=== PATIENT | female | born 1960 | race Caucasian/White ===

== ENCOUNTER 2023-04-09 20:37 | Inpatient (IN) | payer SELFPAY ==
[2023-04-09] MEDS ORDERED: Piperacillin/Tazobactam 4.5 GM VIAL ONE (20:56)
[2023-04-09 21:15] LABS: #Monocytes 1.5 thou/uL (0.11-0.59); #Neutrophils 17.3 thou/uL (1.40-6.50); %Basophils 0.2 % (0.0-1.0); %Monocytes 7.3 % (0.0-10.0); %Neutrophils 85.6 % (42.0-75.0); Hematocrit 37.9 % (36.0-47.0); Hemoglobin 12.5 g/dL (12.0-16.0); Mean Corpuscular Hemoglobin 28.2 pg (27.0-31.0); Mean Corpuscular Volume 85.6 fl (78.0-98.0); Mean Platelet Volume 9.8 fL (7.4-10.4); Platelet Count 298 10x3/uL (130-400); RBC Distribution Width 13.5 % (11.5-14.5); Red Blood Cell (RBC) Count 4.43 mill/uL (4.20-5.40); White Blood Cell (WBC) Count 20.2 10x3/uL (4.8-10.8)
[2023-04-09] MEDS ORDERED: Vancomycin 1.5 GRAM/300 ML BAG 1.5 GM in Premix Bag 1 BAG IVPB SCH (21:15)
[2023-04-09 21:16] LABS: #Basophils 0.1 thou/uL (0.0-0.2)
[2023-04-09 21:25] LABS: Actual Bicarbonate (HCO3v) 21.5 mEq/L (22-28); Base Excess -1.2 mEq/L (-2.0 to +3.0); pH (venous) 7.467 (7.32-7.43)
[2023-04-09 21:26] LABS: Calcium, Ionized (venous) 1.09 mmol/L (1.16-1.32); Chloride (VBG) 100 mmol/L (98-106); Hematocrit-VBG 40 % (36.0-47.0); Hemoglobin (Hb) 13.6 g/dL (11.7-16.0); Sodium 133.5 mmol/L (133-146)
[2023-04-09 21:47] LABS: Troponin I Less than 0.010 ng/mL (< 0.028)
[2023-04-09 22:24] LABS: ALT (SGPT) 34 U/L (8-55); AST (SGOT) 27 U/L (5-34); Albumin 4.3 g/dL (3.4-4.8); Alkaline Phosphatase 129 U/L (40-110); Anion Gap 16 mmol/L (10-20); BUN (Urea Nitrogen) 13 mg/dL (9.8-20.1); Bilirubin, Total 1.5 mg/dL (0.2-1.2); Calc. Creatinine Clearance 0 mL/min (70-130); Calcium 9.6 mg/dL (7.8-10.44); Carbon Dioxide 20 mmol/L (23-31); Chloride 100 mmol/L (98-107); Estimated GFR 65; Globulin 4.1 g/dL (2.4-3.5); Glucose 134 mg/dL (80-115); Lipase 15 U/L (8-78); Magnesium 1.9 mg/dL (1.6-2.6); Potassium 3.6 mmol/L (3.5-5.1); Protein, Total 8.4 g/dL (5.8-8.1); Sodium 132 mmol/L (136-145)
[2023-04-09 23:47] LABS: Bacteria/HPF 4+ HPF (None Seen); Bilirubin Negative (Negative); Blood, Urine 2+ (Negative); CAUTI Indications for Culture Fever or rigors; Clarity Turbid (Clear); Glucose, Urine (Dipstick) Normal (Negative); Ketone, Urine Negative (Negative); Leukocyte 500 Leu/uL (Negative); Nitrite 1+ (Negative); Protein, Urine (Dipstick) 30 mg/dL (Neg-Trace); RBC/HPF 0-3 HPF (0-3); Specific Gravity, Urine 1.012 (1.002-1.036); Urobilinogen 3 mg/dL (Less than 2); WBC/HPF Greater than 50 HPF (0-3); pH, Urine 6.5 (5.0-9.0)
[2023-04-09 23:50] LABS: Urine Culture Reflex Yes Yes
[2023-04-10] MEDS ORDERED: Ondansetron PF 4 MG/2 ML Vial IVP PRN (02:31)
[2023-04-10] MEDS ORDERED: Morphine 4 MG/ML VIAL SLOW IVP PRN (03:09)
[2023-04-10 04:42] VITALS: BMI 44.6
[2023-04-10] MEDS ORDERED: Piperacillin/Tazobactam 3.375 GM VIAL ONE (05:53)
[2023-04-10] MEDS: Piperacillin/Tazobactam 3.375 GM in Sodium Chloride 0.9% 100 ML IVPB SCH ×3 (06:22→20:05)
[2023-04-10 06:42] LABS: #Basophils 0.1 thou/uL (0.0-0.2); #Monocytes 1.3 thou/uL (0.11-0.59); #Neutrophils 16.4 thou/uL (1.40-6.50); %Basophils 0.3 % (0.0-1.0); %Lymphocytes 6.3 % (21.0-51.0); %Monocytes 6.6 % (0.0-10.0); %Neutrophils 86.2 % (42.0-75.0); Hematocrit 36.6 % (36.0-47.0); Hemoglobin 11.9 g/dL (12.0-16.0); Mean Corpuscular HGB CONC 32.5 g/dL (32.0-36.0); Mean Corpuscular Volume 86.1 fl (78.0-98.0); Platelet Count 260 10x3/uL (130-400); RBC Distribution Width 13.6 % (11.5-14.5); Red Blood Cell (RBC) Count 4.25 mill/uL (4.20-5.40)
[2023-04-10 07:07] LABS: Anion Gap 15 mmol/L (10-20); BUN (Urea Nitrogen) 10 mg/dL (9.8-20.1); Calc. Creatinine Clearance 137 mL/min (70-130); Calcium 8.9 mg/dL (7.8-10.44); Carbon Dioxide 18 mmol/L (23-31); Chloride 107 mmol/L (98-107); Estimated GFR 78; Glucose 139 mg/dL (80-115); Potassium 3.8 mmol/L (3.5-5.1); Sodium 136 mmol/L (136-145)
[2023-04-10] MEDS ORDERED: Famotidine/PF 20 mg/2ml Vial ONE (07:55)
[2023-04-10] MEDS ORDERED: Iopamidol 15 ML ONE (08:12)
[2023-04-10] MEDS ORDERED: fentaNYL PF 100 MCG/2 ML SYRINGE ONE (08:22)
[2023-04-10] MEDS ORDERED: PHENYLEPHRINE-NS 100 MCG/ML 10 ML SYRINGE ONE (08:39)
[2023-04-10] MEDS ORDERED: Ondansetron PF 4 MG/2 ML Vial ONE (08:39)
[2023-04-10] MEDS ORDERED: PROPOFOL 200 MG/20 ML VIAL ONE (08:39)
[2023-04-10] MEDS ORDERED: Lidocaine 1% PF 5 ML VIAL ONE (08:39)
[2023-04-10] MEDS ORDERED: Dexamethasone 20 MG/5 ML VIAL ONE (08:39)
[2023-04-10] MEDS ORDERED: Mag-Al 1200 mg/1200 mg/30 ML UDCUP PO PRN (09:12)
[2023-04-10] MEDS ORDERED: diphenhydrAMINE 50 MG/ML VIAL IVP PRN (09:12)
[2023-04-10] MEDS ORDERED: HYDROcodone/Acetaminophen 5/325 mg Tablet PO PRN ×2 (09:12)
[2023-04-10] MEDS ORDERED: Ondansetron HCl/PF 4 MG/2 ML Vial IVP PRN (09:28)
[2023-04-10] MEDS ORDERED: Promethazine HCl 25 MG/ML VIAL IM PRN (09:28)
[2023-04-10] MEDS ORDERED: Iopamidol-370 76% 500 ML MDV (1 ML CHARGE) ONE (10:52)
[2023-04-10] MEDS: Sodium Chloride 0.9% 1,000 ML IV SCH ×2 (15:12→20:14)
[2023-04-10] MEDS: Acetaminophen 325 MG TAB PO PRN (20:53)
[2023-04-11] MEDS: Piperacillin/Tazobactam 3.375 GM in Sodium Chloride 0.9% 100 ML IVPB SCH ×2 (04:50→11:32)
[2023-04-11] MEDS: Sodium Chloride 0.9% 1,000 ML IV SCH ×2 (05:48→11:32)
[2023-04-11 06:59] LABS: #Monocytes 0.7 thou/uL (0.11-0.59); #Neutrophils 12.8 thou/uL (1.40-6.50); %Basophils 0.1 % (0.0-1.0); %Monocytes 4.7 % (0.0-10.0); %Neutrophils 86.5 % (42.0-75.0); Hematocrit 34.4 % (36.0-47.0); Hemoglobin 10.8 g/dL (12.0-16.0); Mean Corpuscular HGB CONC 31.4 g/dL (32.0-36.0); Mean Corpuscular Volume 89.1 fl (78.0-98.0); Mean Platelet Volume 10.6 fL (7.4-10.4); Platelet Count 251 10x3/uL (130-400); RBC Distribution Width 13.6 % (11.5-14.5); Red Blood Cell (RBC) Count 3.86 mill/uL (4.20-5.40); White Blood Cell (WBC) Count 14.8 10x3/uL (4.8-10.8)
[2023-04-11 07:23] LABS: Anion Gap 10 mmol/L (10-20); BUN (Urea Nitrogen) 15 mg/dL (9.8-20.1); Calc. Creatinine Clearance 155 mL/min (70-130); Calcium 9.1 mg/dL (7.8-10.44); Carbon Dioxide 22 mmol/L (23-31); Chloride 110 mmol/L (98-107); Estimated GFR 91; Glucose 125 mg/dL (80-115); Potassium 3.6 mmol/L (3.5-5.1); Sodium 138 mmol/L (136-145)
[2023-04-11] MEDS ORDERED: Polyethylene Glycol 3350 17 GM Packet PO PRN (13:59)
[2023-04-11] MEDS ORDERED: cefTRIAXone\\ROCEPHIN 1 GM in Sodium Chloride 0.9% 100 ML IVPB SCH (17:00)
[2023-04-11] MEDS ORDERED: Potassium Chloride 20 MEQ TAB PO SCH ×2 (17:00)
[2023-04-11] MEDS: Acetaminophen 325 MG TAB PO PRN (20:22)
[2023-04-11] MEDS: Docusate 100 MG CAP PO SCH (20:22)
[2023-04-11] MEDS: Oxybutynin 5 MG TAB PO PRN (20:23)
[2023-04-11] MEDS ORDERED: Multivit, Therapeutic 1 TAB PO SCH (21:00)
[2023-04-11] MEDS ORDERED: Senokot S 8.6-50 MG TAB PO SCH (21:00)
[2023-04-12] MEDS: Sodium Chloride 0.9% 1,000 ML IV SCH ×2 (00:37→05:27)
[2023-04-12] MEDS: Acetaminophen 325 MG TAB PO PRN (01:53)
[2023-04-12 06:42] LABS: #Monocytes 0.6 thou/uL (0.11-0.59); %Basophils 0.4 % (0.0-1.0); %Eosinophils 0.3 % (0.0-10.0); %Lymphocytes 25.5 % (21.0-51.0); %Monocytes 7.5 % (0.0-10.0); %Neutrophils 65.8 % (42.0-75.0); Hematocrit 32.3 % (36.0-47.0); Hemoglobin 10.3 g/dL (12.0-16.0); Mean Corpuscular HGB CONC 31.9 g/dL (32.0-36.0); Mean Corpuscular Hemoglobin 27.8 pg (27.0-31.0); Mean Corpuscular Volume 87.3 fl (78.0-98.0); Mean Platelet Volume 10.5 fL (7.4-10.4); Platelet Count 257 10x3/uL (130-400); RBC Distribution Width 13.8 % (11.5-14.5); White Blood Cell (WBC) Count 7.6 10x3/uL (4.8-10.8)
[2023-04-12 07:04] LABS: ALT (SGPT) 18 U/L (8-55); AST (SGOT) 8 U/L (5-34); Alkaline Phosphatase 87 U/L (40-110); Anion Gap 12 mmol/L (10-20); BUN (Urea Nitrogen) 15 mg/dL (9.8-20.1); Bilirubin, Total 0.2 mg/dL (0.2-1.2); Calc. Creatinine Clearance 162 mL/min (70-130); Calcium 8.6 mg/dL (7.8-10.44); Carbon Dioxide 21 mmol/L (23-31); Chloride 112 mmol/L (98-107); Estimated GFR 95; Globulin 2.8 g/dL (2.4-3.5); Glucose 87 mg/dL (80-115); Protein, Total 5.8 g/dL (5.8-8.1); Sodium 141 mmol/L (136-145)
[2023-04-12 07:34] VITALS: BP 113/73; TEMP 97.8
[2023-04-12] MEDS: Docusate 100 MG CAP PO SCH (09:08)
[2023-04-12] MEDS: Oxybutynin 5 MG TAB PO PRN (09:09)
== END 2023-04-12 12:33 | disposition home or self-care (01) | DRG 854 ==
LOC: ERS 20:37 → ERHOLD 04-10 02:11 → T4-A 04-10 02:47
PROVIDERS: ADMIT Internal Medicine; ATTEND Internal Medicine
PROC: 4A043R1 Measurement of Venous Saturation, Peripheral, Percutaneous Approach (ICD-10-PCS; 2023-04-09)
PROC: 3E03329 Introduction of Other Anti-infective into Peripheral Vein, Percutaneous Approach (ICD-10-PCS; 2023-04-09)
PROC: 0T778DZ Dilation of Left Ureter with Intraluminal Device, Via Natural or Artificial Opening Endoscopic (ICD-10-PCS; principal; 2023-04-10)
PROC: 0T9B70Z Drainage of Bladder with Drainage Device, Via Natural or Artificial Opening (ICD-10-PCS; 2023-04-10)
PROC: BT1F1ZZ Fluoroscopy of Left Kidney, Ureter and Bladder using Low Osmolar Contrast (ICD-10-PCS; 2023-04-10)
DX: A41.51 Sepsis due to Escherichia coli [E. coli] (principal); N13.6 Pyonephrosis; Z68.41 Body mass index [BMI] 40.0-44.9, adult; F32.A Depression, unspecified; E66.01 Morbid (severe) obesity due to excess calories; Z90.710 Acquired absence of both cervix and uterus; Z90.49 Acquired absence of other specified parts of digestive tract; Z83.3 Family history of diabetes mellitus; Z82.49 Family history of ischemic heart disease and other diseases of the circulatory system; Z87.891 Personal history of nicotine dependence; F41.9 Anxiety disorder, unspecified
CPT/HCPCS: 36415; 51701; 71045; 74178; 74420; 80048; 80053; 81001; 82805; 83605; 83690; 83735; 84484; 85025; 87040; 87077; 87086; 87186; 93005; 96365; 96366; 96367; C1769; C2617; J0696; J1100; J2405; J2543; J2704; J3370; J3490; J7050; Q9967; S0028

== ENCOUNTER 2023-06-12 15:37 | Inpatient (IN) | payer BC, OTHER ==
[~2023-06-12 15:37] MED LIST: Iopamidol-370 76% 500 ML MDV (1 ML CHARGE) ONE
[2023-06-12] MEDS ORDERED: Morphine 4 MG/ML VIAL ONE (17:29)
[2023-06-12] MEDS ORDERED: Ondansetron PF 4 MG/2 ML Vial ONE (17:29)
[2023-06-12 17:41] LABS: #Monocytes 0.7 thou/uL (0.11-0.59); #Neutrophils 12.2 thou/uL (1.40-6.50); %Basophils 0.3 % (0.0-1.0); %Eosinophils 0.2 % (0.0-10.0); %Lymphocytes 8.4 % (21.0-51.0); %Monocytes 4.8 % (0.0-10.0); %Neutrophils 85.7 % (42.0-75.0); Hematocrit 32.9 % (36.0-47.0); Hemoglobin 10.5 g/dL (12.0-16.0); Mean Corpuscular HGB CONC 31.9 g/dL (32.0-36.0); Mean Corpuscular Hemoglobin 28.2 pg (27.0-31.0); Mean Corpuscular Volume 88.2 fl (78.0-98.0); Mean Platelet Volume 9.8 fL (7.4-10.4); Platelet Count 323 10x3/uL (130-400); RBC Distribution Width 17.4 % (11.5-14.5); Red Blood Cell (RBC) Count 3.73 mill/uL (4.20-5.40); White Blood Cell (WBC) Count 14.2 10x3/uL (4.8-10.8)
[2023-06-12 18:10] LABS: ALT (SGPT) 11 U/L (8-55); AST (SGOT) 14 U/L (5-34); Albumin 4.5 g/dL (3.4-4.8); Alkaline Phosphatase 125 U/L (40-110); Anion Gap 11 mmol/L (10-20); BUN (Urea Nitrogen) 21 mg/dL (9.8-20.1); Bilirubin, Total 0.5 mg/dL (0.2-1.2); Calc. Creatinine Clearance 0 mL/min (70-130); Calcium 9.3 mg/dL (7.8-10.44); Carbon Dioxide 28 mmol/L (23-31); Chloride 103 mmol/L (98-107); Estimated GFR 72; Globulin 3.4 g/dL (2.4-3.5); Glucose 107 mg/dL (80-115); Potassium 3.9 mmol/L (3.5-5.1); Protein, Total 7.9 g/dL (5.8-8.1); Sodium 138 mmol/L (136-145)
[2023-06-12 20:11] LABS: Troponin I Less than 0.010 ng/mL (< 0.028)
[2023-06-12 20:20] LABS: Bacteria/HPF 4+ HPF (None Seen); Bilirubin Negative (Negative); Blood, Urine Trace (Negative); CAUTI Indications for Culture Dysuria,urgency,freq; Clarity Turbid (Clear); Glucose, Urine (Dipstick) Normal (Negative); Ketone, Urine Negative (Negative); Leukocyte 500 Leu/uL (Negative); Nitrite 2+ (Negative); Protein, Urine (Dipstick) 20 mg/dL (Neg-Trace); Specific Gravity, Urine 1.036 (1.002-1.036); Squamous Epithelial 0-3 HPF (0-3); Urobilinogen Normal mg/dL (Less than 2); WBC/HPF Greater than 50 HPF (0-3); pH, Urine 6.5 (5.0-9.0)
[2023-06-12 20:23] LABS: Urine Culture Reflex Yes Yes
[2023-06-12] MEDS ORDERED: cefTRIAXone (ROCEPHIN) 2 GM VIAL ONE (20:31)
[2023-06-12] MEDS ORDERED: Sodium Chloride 0.9% 100 ML ONE (20:31)
[2023-06-12] MEDS ORDERED: Meropenem 1 GM in Sodium Chloride 0.9% 100 ML IVPB SCH (22:45)
[2023-06-12 23:50] LABS: INR-International Normal Ratio 1.1; Prothrombin Time 14.2 sec (12.0-14.7)
[2023-06-12 23:52] LABS: PTT 23.2 sec (22.9-36.1)
[2023-06-13] MEDS ORDERED: Morphine 4 MG/ML VIAL SLOW IVP PRN (00:22)
[2023-06-13] MEDS ORDERED: Ondansetron ODT 4 MG TAB PO PRN (01:14)
[2023-06-13] MEDS ORDERED: Ondansetron PF 4 MG/2 ML Vial IVP PRN (01:14)
[2023-06-13] MEDS ORDERED: Acetaminophen 650 MG Suppository PR PRN (01:14)
[2023-06-13 02:01] VITALS: BMI 42.5
[2023-06-13] MEDS: Sodium Chloride 0.9% 1,000 ML IV SCH ×2 (02:39→17:01)
[2023-06-13] MEDS ORDERED: Morphine 4 MG/ML VIAL ONE (02:42)
[2023-06-13] MEDS ORDERED: Ondansetron PF 4 MG/2 ML Vial ONE (03:22)
[2023-06-13 04:59] LABS: #Basophils 0.1 thou/uL (0.0-0.2); #Monocytes 0.9 thou/uL (0.11-0.59); #Neutrophils 13.6 thou/uL (1.40-6.50); %Basophils 0.3 % (0.0-1.0); %Lymphocytes 5.4 % (21.0-51.0); %Monocytes 5.6 % (0.0-10.0); %Neutrophils 88.1 % (42.0-75.0); Hematocrit 31.5 % (36.0-47.0); Hemoglobin 9.8 g/dL (12.0-16.0); Mean Corpuscular HGB CONC 31.1 g/dL (32.0-36.0); Mean Corpuscular Hemoglobin 27.5 pg (27.0-31.0); Mean Corpuscular Volume 88.5 fl (78.0-98.0); Mean Platelet Volume 9.7 fL (7.4-10.4); Platelet Count 288 10x3/uL (130-400); RBC Distribution Width 17.8 % (11.5-14.5); Red Blood Cell (RBC) Count 3.56 mill/uL (4.20-5.40); White Blood Cell (WBC) Count 15.5 10x3/uL (4.8-10.8)
[2023-06-13 05:22] LABS: Anion Gap 13 mmol/L (10-20); BUN (Urea Nitrogen) 13 mg/dL (9.8-20.1); Calc. Creatinine Clearance 131 mL/min (70-130); Calcium 8.5 mg/dL (7.8-10.44); Carbon Dioxide 22 mmol/L (23-31); Chloride 106 mmol/L (98-107); Estimated GFR 79; Glucose 125 mg/dL (80-115); Potassium 4.1 mmol/L (3.5-5.1); Sodium 137 mmol/L (136-145)
[2023-06-13] MEDS ORDERED: Piperacillin/Tazobactam 3.375 GM VIAL ONE ×2 (06:57→13:21)
[2023-06-13] MEDS ORDERED: Sodium Chloride 0.9% 100 ML ONE ×2 (06:58→13:21)
[2023-06-13] MEDS ORDERED: Piperacillin/Tazobactam 3.375 GM in Sodium Chloride 0.9% 100 ML IVPB SCH (07:00)
[2023-06-13] MEDS ORDERED: ALPRAZolam 0.25 MG TAB PO SCH (09:00)
[2023-06-13] MEDS ORDERED: ALPRAZolam 0.25 MG TAB ONE (09:47)
[2023-06-13] MEDS ORDERED: Sodium Bicarbonate 2.5 MEQ/5 ML VIAL ONE (09:57)
[2023-06-13] MEDS ORDERED: Midazolam HCl 2 mg/2 ml Vial ONE (09:58)
[2023-06-13] MEDS ORDERED: fentaNYL 50 mcg/mL 1 mL Vial ONE ×2 (09:58→11:38)
[2023-06-13] MEDS ORDERED: Lidocaine 1% PF 5 ML VIAL ONE (09:58)
[2023-06-13] MEDS ORDERED: Lidocaine 1% w/Epinephrine 1:100K 20 ML VIAL ONE (10:09)
[2023-06-13] MEDS: Piperacillin/Tazobactam 3.375 GM in Sodium Chloride 0.9% 100 ML IVPB SCH ×2 (13:36→20:45)
[2023-06-13] MEDS: Acetaminophen 325 MG TAB PO PRN ×2 (16:57→20:46)
[2023-06-13] MEDS: traMADol HCl 50 MG TAB PO PRN (21:19)
[2023-06-14] MEDS: Sodium Chloride 0.9% 1,000 ML IV SCH ×2 (02:40→13:10)
[2023-06-14] MEDS: traMADol HCl 50 MG TAB PO PRN (03:17)
[2023-06-14] MEDS: Piperacillin/Tazobactam 3.375 GM in Sodium Chloride 0.9% 100 ML IVPB SCH ×3 (03:17→20:09)
[2023-06-14] MEDS ORDERED: fentaNYL 50 mcg/mL 1 mL Vial ONE (06:46)
[2023-06-14] MEDS ORDERED: PROPOFOL 40 ML ONE (06:46)
[2023-06-14] MEDS ORDERED: Dexamethasone 4 mg/ml Vial ONE (06:48)
[2023-06-14] MEDS ORDERED: Lidocaine 1% PF 5 ML VIAL ONE (06:48)
[2023-06-14] MEDS ORDERED: Ondansetron PF 4 MG/2 ML Vial ONE ×2 (06:48→07:20)
[2023-06-14] MEDS ORDERED: Iopamidol 15 ML ONE (06:50)
[2023-06-14] MEDS ORDERED: SUGAMMADEX SODIUM 200 MG/2 ML VIAL ONE (07:10)
[2023-06-14] MEDS ORDERED: Rocuronium Bromide 10 MG/ML (10ML VIAL) ONE (07:20)
[2023-06-14] MEDS ORDERED: PROPOFOL 200 MG/20 ML VIAL ONE (07:20)
[2023-06-14] MEDS ORDERED: PHENYLEPHRINE-NS 100 MCG/ML 10 ML SYRINGE ONE (07:20)
[2023-06-14] MEDS ORDERED: Dexamethasone 20 MG/5 ML VIAL ONE (07:20)
[2023-06-14] MEDS ORDERED: Ondansetron HCl/PF 4 MG/2 ML Vial IVP PRN (08:08)
[2023-06-14] MEDS ORDERED: Promethazine HCl 25 MG/ML VIAL IM PRN (08:08)
[2023-06-14] MEDS ORDERED: Oxybutynin 5 MG TAB PO PRN (09:50)
[2023-06-14] MEDS: Sertraline 100 MG TAB PO SCH (10:57)
[2023-06-14] MEDS: Multivit, Therapeutic 1 TAB PO SCH (20:09)
[2023-06-15] MEDS: Sodium Chloride 0.9% 1,000 ML IV SCH ×3 (03:05→22:53)
[2023-06-15] MEDS: Piperacillin/Tazobactam 3.375 GM in Sodium Chloride 0.9% 100 ML IVPB SCH ×3 (03:46→20:44)
[2023-06-15 06:01] LABS: #Monocytes 0.4 thou/uL (0.11-0.59); #Neutrophils 6.2 thou/uL (1.40-6.50); %Basophils 0.3 % (0.0-1.0); %Eosinophils 0.1 % (0.0-10.0); %Lymphocytes 16.2 % (21.0-51.0); %Monocytes 4.8 % (0.0-10.0); Hematocrit 30.4 % (36.0-47.0); Hemoglobin 9.5 g/dL (12.0-16.0); Mean Corpuscular HGB CONC 31.3 g/dL (32.0-36.0); Mean Corpuscular Hemoglobin 28.1 pg (27.0-31.0); Mean Corpuscular Volume 89.9 fl (78.0-98.0); Mean Platelet Volume 9.9 fL (7.4-10.4); Platelet Count 286 10x3/uL (130-400); RBC Distribution Width 17.2 % (11.5-14.5); Red Blood Cell (RBC) Count 3.38 mill/uL (4.20-5.40); White Blood Cell (WBC) Count 7.9 10x3/uL (4.8-10.8)
[2023-06-15 06:29] LABS: Anion Gap 11 mmol/L (10-20); BUN (Urea Nitrogen) 9 mg/dL (9.8-20.1); Calc. Creatinine Clearance 138 mL/min (70-130); Calcium 8.9 mg/dL (7.8-10.44); Carbon Dioxide 26 mmol/L (23-31); Chloride 108 mmol/L (98-107); Estimated GFR 83; Glucose 106 mg/dL (80-115); Potassium 3.6 mmol/L (3.5-5.1); Sodium 141 mmol/L (136-145)
[2023-06-15] MEDS: Multivit, Therapeutic 1 TAB PO SCH ×2 (09:00→20:45)
[2023-06-15] MEDS: Sertraline 100 MG TAB PO SCH (09:00)
[2023-06-15] MEDS: HYDROcodone/Acetaminophen 5/325 mg Tablet PO PRN (11:17)
[2023-06-15] MEDS: traMADol HCl 50 MG TAB PO PRN (20:45)
[2023-06-16] MEDS: traMADol HCl 50 MG TAB PO PRN ×3 (01:32→16:58)
[2023-06-16] MEDS: Piperacillin/Tazobactam 3.375 GM in Sodium Chloride 0.9% 100 ML IVPB SCH ×3 (03:22→20:51)
[2023-06-16 06:39] LABS: #Basophils 0.1 thou/uL (0.0-0.2); #Eosinphils 0.1 thou/uL (0.0-0.7); #Monocytes 0.4 thou/uL (0.11-0.59); #Neutrophils 3.7 thou/uL (1.40-6.50); %Basophils 0.8 % (0.0-1.0); %Lymphocytes 29.1 % (21.0-51.0); %Monocytes 6.2 % (0.0-10.0); %Neutrophils 61.6 % (42.0-75.0); Hematocrit 30.5 % (36.0-47.0); Hemoglobin 9.3 g/dL (12.0-16.0); Mean Corpuscular HGB CONC 30.5 g/dL (32.0-36.0); Mean Corpuscular Hemoglobin 27.1 pg (27.0-31.0); Mean Corpuscular Volume 88.9 fl (78.0-98.0); Mean Platelet Volume 9.8 fL (7.4-10.4); Platelet Count 295 10x3/uL (130-400); RBC Distribution Width 17.2 % (11.5-14.5); Red Blood Cell (RBC) Count 3.43 mill/uL (4.20-5.40)
[2023-06-16 07:04] LABS: Anion Gap 11 mmol/L (10-20); BUN (Urea Nitrogen) 12 mg/dL (9.8-20.1); Calc. Creatinine Clearance 153 mL/min (70-130); Calcium 8.6 mg/dL (7.8-10.44); Carbon Dioxide 26 mmol/L (23-31); Chloride 107 mmol/L (98-107); Estimated GFR 94; Glucose 81 mg/dL (80-115); Potassium 3.5 mmol/L (3.5-5.1); Sodium 140 mmol/L (136-145)
[2023-06-16] MEDS ORDERED: FLU VACC QS2023-24(6MOS UP)/PF 60 MCG/0.5 ML SYRINGE IM ONE (09:00)
[2023-06-16] MEDS: Sodium Chloride 0.9% 1,000 ML IV SCH ×2 (09:08→19:05)
[2023-06-16] MEDS: Multivit, Therapeutic 1 TAB PO SCH ×2 (09:08→20:51)
[2023-06-16] MEDS: Sertraline 100 MG TAB PO SCH (09:08)
[2023-06-17] MEDS: Sodium Chloride 0.9% 1,000 ML IV SCH ×2 (01:23→15:02)
[2023-06-17] MEDS: Piperacillin/Tazobactam 3.375 GM in Sodium Chloride 0.9% 100 ML IVPB SCH ×3 (03:56→21:06)
[2023-06-17] MEDS: Multivit, Therapeutic 1 TAB PO SCH ×2 (08:56→21:08)
[2023-06-17] MEDS: Sertraline 100 MG TAB PO SCH (08:56)
[2023-06-17] MEDS ORDERED: Iopamidol-370 76% 500 ML MDV (1 ML CHARGE) ONE (10:42)
[2023-06-17 15:30] LABS: Bacteria/HPF None Seen HPF (None Seen); Bilirubin Negative (Negative); Blood, Urine 1+ (Negative); Clarity Clear (Clear); Glucose, Urine (Dipstick) Normal (Negative); Ketone, Urine Negative (Negative); Leukocyte 250 Leu/uL (Negative); Nitrite Negative (Negative); Protein, Urine (Dipstick) Negative (Neg-Trace); Specific Gravity, Urine 1.021 (1.002-1.036); Squamous Epithelial 0-3 HPF (0-3); Urobilinogen Normal mg/dL (Less than 2); pH, Urine 6.5 (5.0-9.0)
[2023-06-18] MEDS: Piperacillin/Tazobactam 3.375 GM in Sodium Chloride 0.9% 100 ML IVPB SCH ×3 (04:54→20:41)
[2023-06-18] MEDS: Sodium Chloride 0.9% 1,000 ML IV SCH ×3 (04:56→20:42)
[2023-06-18] MEDS: Sertraline 100 MG TAB PO SCH (08:16)
[2023-06-18] MEDS: Multivit, Therapeutic 1 TAB PO SCH ×2 (08:16→20:42)
[2023-06-18] MEDS: traMADol HCl 50 MG TAB PO PRN (12:49)
[2023-06-19] MEDS: Acetaminophen 325 MG TAB PO PRN (00:17)
[2023-06-19] MEDS: Piperacillin/Tazobactam 3.375 GM in Sodium Chloride 0.9% 100 ML IVPB SCH ×3 (04:42→21:16)
[2023-06-19] MEDS: Sertraline 100 MG TAB PO SCH (08:08)
[2023-06-19] MEDS: Sodium Chloride 0.9% 1,000 ML IV SCH ×2 (08:08→16:19)
[2023-06-19] MEDS: Multivit, Therapeutic 1 TAB PO SCH ×2 (08:09→21:18)
[2023-06-19] MEDS: HYDROcodone/Acetaminophen 5/325 mg Tablet PO PRN (11:39)
[2023-06-19] MEDS: traMADol HCl 50 MG TAB PO PRN ×2 (14:58→21:16)
[2023-06-20] MEDS: HYDROcodone/Acetaminophen 5/325 mg Tablet PO PRN (04:03)
[2023-06-20] MEDS: Piperacillin/Tazobactam 3.375 GM in Sodium Chloride 0.9% 100 ML IVPB SCH ×3 (04:03→20:15)
[2023-06-20] MEDS: Sodium Chloride 0.9% 1,000 ML IV SCH ×3 (04:04→21:10)
[2023-06-20] MEDS: Sertraline 100 MG TAB PO SCH (08:36)
[2023-06-20] MEDS: Multivit, Therapeutic 1 TAB PO SCH ×2 (08:36→20:15)
[2023-06-20] MEDS: traMADol HCl 50 MG TAB PO PRN (20:19)
[2023-06-21] MEDS: Piperacillin/Tazobactam 3.375 GM in Sodium Chloride 0.9% 100 ML IVPB SCH ×3 (04:54→20:09)
[2023-06-21] MEDS: Sertraline 100 MG TAB PO SCH (08:38)
[2023-06-21] MEDS: Sodium Chloride 0.9% 1,000 ML IV SCH ×2 (08:38→20:10)
[2023-06-21] MEDS: Multivit, Therapeutic 1 TAB PO SCH ×2 (08:38→20:10)
[2023-06-21] MEDS: traMADol HCl 50 MG TAB PO PRN (20:59)
[2023-06-21] MEDS: Acetaminophen 325 MG TAB PO PRN (21:00)
[2023-06-22] MEDS: Piperacillin/Tazobactam 3.375 GM in Sodium Chloride 0.9% 100 ML IVPB SCH ×3 (04:00→20:16)
[2023-06-22] MEDS: Sodium Chloride 0.9% 1,000 ML IV SCH (05:32)
[2023-06-22] MEDS: Multivit, Therapeutic 1 TAB PO SCH ×2 (08:16→20:17)
[2023-06-22] MEDS: Sertraline 100 MG TAB PO SCH (08:16)
[2023-06-22] MEDS: Acetaminophen 325 MG TAB PO PRN ×2 (11:11→20:17)
[2023-06-23] MEDS: Piperacillin/Tazobactam 3.375 GM in Sodium Chloride 0.9% 100 ML IVPB SCH ×3 (03:42→20:10)
[2023-06-23] MEDS ORDERED: diphenhydrAMINE 25 MG CAP PO SCH (04:15)
[2023-06-23] MEDS: Acetaminophen 325 MG TAB PO PRN (04:26)
[2023-06-23] MEDS: traMADol HCl 50 MG TAB PO PRN (06:04)
[2023-06-23] MEDS: Multivit, Therapeutic 1 TAB PO SCH ×2 (07:59→20:11)
[2023-06-23] MEDS: Sertraline 100 MG TAB PO SCH (07:59)
[2023-06-23] MEDS: Nystatin Powder 15 GM BOT TOP SCH (20:11)
[2023-06-23] MEDS: diphenhydrAMINE 25 MG CAP PO PRN (20:11)
[2023-06-24] MEDS: Piperacillin/Tazobactam 3.375 GM in Sodium Chloride 0.9% 100 ML IVPB SCH ×3 (04:21→19:50)
[2023-06-24] MEDS: diphenhydrAMINE 25 MG CAP PO PRN ×3 (04:22→19:50)
[2023-06-24 06:31] LABS: #Basophils 0.1 thou/uL (0.0-0.2); #Eosinphils 0.2 thou/uL (0.0-0.7); #Monocytes 0.5 thou/uL (0.11-0.59); #Neutrophils 4.4 thou/uL (1.40-6.50); %Basophils 1.3 % (0.0-1.0); %Eosinophils 3.3 % (0.0-10.0); %Lymphocytes 25.3 % (21.0-51.0); %Neutrophils 62.8 % (42.0-75.0); Hematocrit 37.3 % (36.0-47.0); Hemoglobin 11.9 g/dL (12.0-16.0); Mean Corpuscular HGB CONC 31.9 g/dL (32.0-36.0); Mean Corpuscular Hemoglobin 27.7 pg (27.0-31.0); Mean Corpuscular Volume 86.7 fl (78.0-98.0); Platelet Count 331 10x3/uL (130-400); RBC Distribution Width 17.2 % (11.5-14.5)
[2023-06-24 06:59] LABS: ALT (SGPT) 18 U/L (8-55); AST (SGOT) 20 U/L (5-34); Alkaline Phosphatase 101 U/L (40-110); Anion Gap 15 mmol/L (10-20); BUN (Urea Nitrogen) 16 mg/dL (9.8-20.1); Bilirubin, Total 0.7 mg/dL (0.2-1.2); CRP (Inflammatory) 2.79 mg/dL (= or < 0.5); Calc. Creatinine Clearance 134 mL/min (70-130); Calcium 9.7 mg/dL (7.8-10.44); Carbon Dioxide 24 mmol/L (23-31); Chloride 103 mmol/L (98-107); Estimated GFR 81; Globulin 4.1 g/dL (2.4-3.5); Glucose 96 mg/dL (80-115); Potassium 3.8 mmol/L (3.5-5.1); Protein, Total 8.1 g/dL (5.8-8.1); Sodium 138 mmol/L (136-145)
[2023-06-24] MEDS: Sertraline 100 MG TAB PO SCH (08:08)
[2023-06-24] MEDS: Multivit, Therapeutic 1 TAB PO SCH ×2 (08:08→19:50)
[2023-06-24] MEDS: Nystatin Powder 15 GM BOT TOP SCH ×2 (08:09→19:51)
[2023-06-25] MEDS: Piperacillin/Tazobactam 3.375 GM in Sodium Chloride 0.9% 100 ML IVPB SCH ×3 (04:15→18:06)
[2023-06-25] MEDS: Sertraline 100 MG TAB PO SCH (08:00)
[2023-06-25] MEDS: Multivit, Therapeutic 1 TAB PO SCH ×2 (08:01→21:02)
[2023-06-25] MEDS: diphenhydrAMINE 25 MG CAP PO PRN (08:01)
[2023-06-25] MEDS: Nystatin Powder 15 GM BOT TOP SCH ×2 (08:01→21:02)
[2023-06-25] MEDS: traMADol HCl 50 MG TAB PO PRN ×2 (12:03→23:08)
[2023-06-26 01:19] VITALS: BP 134/78; TEMP 97.9
== END 2023-06-26 01:03 | disposition home or self-care (01) | DRG 853 ==
LOC: ERS 15:37 → ERHOLD 23:52 → T4-B 06-13 16:36
PROVIDERS: ADMIT Student in an Organized Health Care Education/Training Program; ATTEND Internal Medicine
PROC: 3E04329 Introduction of Other Anti-infective into Central Vein, Percutaneous Approach (ICD-10-PCS; 2023-06-13)
PROC: BT1F1ZZ Fluoroscopy of Left Kidney, Ureter and Bladder using Low Osmolar Contrast (ICD-10-PCS; principal; 2023-06-14)
PROC: 0T778DZ Dilation of Left Ureter with Intraluminal Device, Via Natural or Artificial Opening Endoscopic (ICD-10-PCS; 2023-06-14)
PROC: 02HV33Z Insertion of Infusion Device into Superior Vena Cava, Percutaneous Approach (ICD-10-PCS; 2023-06-18)
PROC: B5181ZA Fluoroscopy of Superior Vena Cava using Low Osmolar Contrast, Guidance (ICD-10-PCS; 2023-06-18)
PROC: B548ZZA Ultrasonography of Superior Vena Cava, Guidance (ICD-10-PCS; 2023-06-18)
DX: A41.52 Sepsis due to Pseudomonas (principal); N15.1 Renal and perinephric abscess; Z68.41 Body mass index [BMI] 40.0-44.9, adult; N13.6 Pyonephrosis; Z90.710 Acquired absence of both cervix and uterus; Z90.49 Acquired absence of other specified parts of digestive tract; Z79.899 Other long term (current) drug therapy; D64.9 Anemia, unspecified; E66.01 Morbid (severe) obesity due to excess calories; Z98.890 Other specified postprocedural states; Z83.3 Family history of diabetes mellitus; Z87.891 Personal history of nicotine dependence; F32.A Depression, unspecified
CPT/HCPCS: 36415; 36569; 50020; 71045; 74178; 74420; 77012; 80048; 80053; 81001; 83605; 83690; 83880; 84443; 84484; 85025; 85610; 85730; 86140; 87040; 87070; 87076; 87077; 87086; 87149; 87186; 87205; 93005; 96365; 96367; 96375; C2617; J0696; J1100; J2185; J2250; J2270; J2405; J2543; J2704; J3010; J3490; J7050; Q9967

== ENCOUNTER 2023-06-28 10:07 | Outpatient (CLI) | payer BC, OTHER ==
[2023-06-28 11:29] LABS: Hematocrit 35.9 % (34.9-44.5); Hemoglobin 11.4 g/dL (12.0-15.5); Mean Corpuscular HGB CONC 31.8 g/dL (32.0-36.0); Mean Corpuscular Hemoglobin 27.3 pg (27.0-33.0); Mean Corpuscular Volume 86.1 fl (81.6-98.3); Mean Platelet Volume 10.3 fl (7.4-10.4); Platelet Count 341 10x3/uL (150-450); RBC Distribution Width 16.8 % (11.5-14.5); Red Blood Cell (RBC) Count 4.17 10x6/uL (3.90-5.03); White Blood Cell (WBC) Count 6.3 10x3/uL (3.5-10.5)
[2023-06-28 11:39] LABS: PTT 25.6 sec (22.0-33.0); Prothrombin Time 10.9 sec (9.5-12.1)
[2023-06-28 11:41] LABS: Anion Gap 15 mmol/L (10-20); BUN (Urea Nitrogen) 11 mg/dL (9.8-20.1); Calc. Creatinine Clearance 0 mL/min (70-130); Calcium 9.8 mg/dL (7.8-10.44); Carbon Dioxide 22 mmol/L (23-31); Chloride 106 mmol/L (98-107); Estimated GFR 94; Glucose 106 mg/dL (80-115); Potassium 3.6 mmol/L (3.5-5.1); Sodium 139 mmol/L (136-145)
== END 2023-06-28 10:08 | disposition home or self-care (01) ==
LOC: LABBT 10:07
PROVIDERS: ATTEND Urology
DX: Z01.818 Encounter for other preprocedural examination (principal); N20.0 Calculus of kidney
CPT/HCPCS: 80048; 85027; 85610; 85730; 93005; 93010

== ENCOUNTER 2023-07-01 06:08 | Day surgery (SDC) | payer BC ==
[2023-06-28 10:35] VITALS: BMI 41.6
[2023-07-01] MEDS ORDERED: Vancomycin 1 GM/200 ML (FROZEN) BAG ONE (06:51)
[2023-07-01] MEDS ORDERED: PROPOFOL 40 ML ONE (06:58)
[2023-07-01] MEDS ORDERED: Rocuronium Bromide 10 MG/ML (10ML VIAL) ONE (06:58)
[2023-07-01] MEDS ORDERED: SUGAMMADEX SODIUM 200 MG/2 ML VIAL ONE (06:58)
[2023-07-01] MEDS ORDERED: fentaNYL PF 100 MCG/2 ML SYRINGE ONE (06:58)
[2023-07-01] MEDS ORDERED: Dexamethasone 4 mg/ml Vial ONE (06:58)
[2023-07-01] MEDS ORDERED: Lidocaine 1% PF 5 ML VIAL ONE (06:58)
[2023-07-01] MEDS ORDERED: Ondansetron PF 4 MG/2 ML Vial ONE ×3 (06:58→10:07)
[2023-07-01] MEDS ORDERED: PHENYLEPHRINE-NS 100 MCG/ML 10 ML SYRINGE ONE (07:00)
[2023-07-01] MEDS ORDERED: Iopamidol 30 ML ONE (07:22)
[2023-07-01] MEDS ORDERED: Piperacillin/Tazobactam 3.375 GM VIAL ONE (07:26)
[2023-07-01] MEDS ORDERED: Sodium Chloride 0.9% 100 ML ONE (07:27)
[2023-07-01] MEDS ORDERED: Phenazopyridine HCl 100 MG TAB ONE (09:22)
[2023-07-01] MEDS ORDERED: Oxybutynin 5 MG TAB ONE (09:22)
[2023-07-01] MEDS ORDERED: Acetaminophen 500 MG TAB ONE (10:56)
== END 2023-07-01 11:15 | disposition home or self-care (01) ==
LOC: SDC 06:08
PROVIDERS: ATTEND Urology
PROC: 0T778DZ Dilation of Left Ureter with Intraluminal Device, Via Natural or Artificial Opening Endoscopic (ICD-10-PCS; principal; 2023-07-01)
PROC: 0TC78ZZ Extirpation of Matter from Left Ureter, Via Natural or Artificial Opening Endoscopic (ICD-10-PCS; principal; 2023-07-01)
DX: N20.2 Calculus of kidney with calculus of ureter (principal); Z90.710 Acquired absence of both cervix and uterus; Z90.49 Acquired absence of other specified parts of digestive tract
CPT/HCPCS: 74018; 74420; 82365; 88300; C1747; C1769; C2617; J1100; J2405; J2543; J2704; J3370-JW; J3490; Q9967

== ENCOUNTER → 2023-07-03 | Day surgery (SDC) | payer BC, OTHER | LOC: ONC/OP 13:47 | PROVIDERS: ATTEND Internal Medicine | DX: N15.1 Renal and perinephric abscess (principal); A41.52 Sepsis due to Pseudomonas | CPT/HCPCS: 96523; 99211; G0463 ==

== ENCOUNTER 2023-07-10 09:55 | Outpatient (CLI) | payer BC | END 2023-07-10 09:56 | disposition home or self-care (01) | LOC: BICCT 09:55 | PROVIDERS: ATTEND Urology | DX: N15.1 Renal and perinephric abscess (principal); N20.2 Calculus of kidney with calculus of ureter; N32.89 Other specified disorders of bladder; Z98.890 Other specified postprocedural states | CPT/HCPCS: 74178 ==

== ENCOUNTER 2023-07-11 10:08 | Day surgery (SDC) | payer BC, OTHER | END 2023-07-11 10:20 | disposition home or self-care (01) | LOC: ONC/OP 10:08 | PROVIDERS: ATTEND Urology | DX: Z45.2 Encounter for adjustment and management of vascular access device (principal); N20.2 Calculus of kidney with calculus of ureter; A41.52 Sepsis due to Pseudomonas; N15.1 Renal and perinephric abscess; Z98.890 Other specified postprocedural states; F41.9 Anxiety disorder, unspecified | CPT/HCPCS: 99211; G0463 ==

== ENCOUNTER 2023-10-09 10:44 | Outpatient (CLI) | payer BC | END 2023-10-09 10:45 | disposition home or self-care (01) | LOC: BICULT 10:44 | PROVIDERS: ATTEND Urology | DX: N15.1 Renal and perinephric abscess (principal); N20.0 Calculus of kidney; M51.86 Other intervertebral disc disorders, lumbar region; Z98.890 Other specified postprocedural states | CPT/HCPCS: 74018; 76770 ==

== ENCOUNTER 2024-01-13 08:51 | Outpatient (CLI) | payer BC | END 2024-01-13 08:52 | disposition home or self-care (01) | LOC: NM 08:51 | PROVIDERS: ATTEND Specialist | DX: E21.3 Hyperparathyroidism, unspecified (principal) | CPT/HCPCS: 78072; A9500 ==

== ENCOUNTER 2024-03-27 12:28 | Outpatient (CLI) | payer BC | END 2024-03-27 12:29 | disposition home or self-care (01) | LOC: BICULT 12:28 | PROVIDERS: ATTEND Urology | DX: N20.0 Calculus of kidney (principal); R79.89 Other specified abnormal findings of blood chemistry; R19.8 Other specified symptoms and signs involving the digestive system and abdomen | CPT/HCPCS: 74018; 76770 ==

== ENCOUNTER 2025-03-15 10:52 | Outpatient (CLI) | payer BC | END 2025-03-15 10:53 | disposition home or self-care (01) | LOC: BICULT 10:52 | PROVIDERS: ATTEND Urology | DX: N20.0 Calculus of kidney (principal); R39.198 Other difficulties with micturition | CPT/HCPCS: 74018; 76770 ==

== ENCOUNTER 2025-04-27 14:44 | Outpatient (CLI) | payer BC | END 2025-04-27 14:45 | disposition home or self-care (01) | LOC: CT 14:44 | PROVIDERS: ATTEND Urology | DX: N20.0 Calculus of kidney (principal); N28.89 Other specified disorders of kidney and ureter; N26.1 Atrophy of kidney (terminal) | CPT/HCPCS: 74176 ==

== ENCOUNTER 2025-04-29 11:42 | Outpatient (CLI) | payer BC ==
[2025-04-29 13:35] LABS: #Basophils 0.06 10x3/uL (0.0-0.2); #Eosinophils 0.13 10x3/uL (0.0-0.7); #Monocytes 0.56 10x3/uL (0.11-0.59); #Neutrophils 5.18 10x3/uL (1.40-6.50); %Basophils 0.8 % (0.0-1.0); %Eosinophils 1.6 % (0.0-10.0); %Lymphocytes 25.3 % (21.0-51.0); %Monocytes 7.0 % (0.0-10.0); %Neutrophils 64.9 % (42.0-75.0); Hematocrit 42.3 % (36.0-47.0); Hemoglobin 13.1 g/dL (12.0-16.0); Mean Corpuscular Hemoglobin 27.4 pg (27.0-31.0); Mean Corpuscular Volume 88.5 fL (78.0-98.0); Platelet Count 252 10x3/uL (130-400); Red Blood Cell (RBC) Count 4.78 mill/uL (4.20-5.40); White Blood Cell (WBC) Count 7.98 10x3/uL (4.8-10.8)
[2025-04-29 13:50] LABS: PTT 33.4 sec (22.9-36.1)
[2025-04-29 13:51] LABS: INR-International Normal Ratio 1.0; Prothrombin Time 13.4 sec (12.0-14.7)
[2025-04-29 14:14] LABS: Anion Gap 17 mmol/L (10-20); BUN (Urea Nitrogen) 16 mg/dL (9.8-20.1); Calc. Creatinine Clearance 0 mL/min (70-130); Calcium 9.7 mg/dL (7.8-10.44); Carbon Dioxide 22 mmol/L (23-31); Chloride 105 mmol/L (98-107); Glucose 89 mg/dL (80-115); Potassium 4.4 mmol/L (3.5-5.1); Sodium 140 mmol/L (136-145)
== END 2025-04-29 11:43 | disposition home or self-care (01) ==
LOC: LABBT 11:42
PROVIDERS: ATTEND Urology
DX: Z01.818 Encounter for other preprocedural examination (principal); N20.0 Calculus of kidney
CPT/HCPCS: 80048; 85025; 85610; 85730; 93005; 93010

== ENCOUNTER 2025-05-03 07:07 | Day surgery (SDC) | payer BC ==
[2025-04-29 11:53] VITALS: BMI 43.4
[2025-05-03 09:12] LABS: Bacteria/HPF 4+ HPF (None Seen); Glucose, Urine (Dipstick) Normal (Negative); Leukocyte 250 Leu/uL (Negative); Protein, Urine (Dipstick) Negative (Neg-Trace); RBC/HPF 0-3 HPF (0-3); Specific Gravity, Urine 1.016 (1.002-1.036)
[2025-05-03] MEDS ORDERED: PROPOFOL 20 ML ONE (10:58)
[2025-05-03] MEDS ORDERED: Ondansetron PF 4 MG/2 ML Vial ONE (11:02)
[2025-05-03] MEDS ORDERED: Oxybutynin 5 MG TAB ONE (11:53)
[2025-05-03 13:07] LABS: Bacteria/HPF 4+ HPF (None Seen); Glucose, Urine (Dipstick) Normal (Negative); Leukocyte 25 Leu/uL (Negative); Protein, Urine (Dipstick) Negative (Neg-Trace); RBC/HPF 0-3 HPF (0-3); Specific Gravity, Urine 1.014 (1.002-1.036); WBC/HPF 0-3 HPF (0-3)
== END 2025-05-03 13:45 | disposition home or self-care (01) ==
LOC: SDC 07:07
PROVIDERS: ATTEND Urology
PROC: 0T768DZ Dilation of Right Ureter with Intraluminal Device, Via Natural or Artificial Opening Endoscopic (ICD-10-PCS; principal; 2025-05-03)
DX: N20.0 Calculus of kidney (principal); N15.1 Renal and perinephric abscess; A41.52 Sepsis due to Pseudomonas; F41.9 Anxiety disorder, unspecified; R79.89 Other specified abnormal findings of blood chemistry; R07.89 Other chest pain; Z98.51 Tubal ligation status; Z90.710 Acquired absence of both cervix and uterus; Z90.49 Acquired absence of other specified parts of digestive tract; Z98.890 Other specified postprocedural states; Z79.899 Other long term (current) drug therapy
CPT/HCPCS: 74420; 81001; 87077; 87086; C1769; C2617; J1100; J2543; J2704; Q9967

== ENCOUNTER 2025-05-13 11:55 | Outpatient (CLI) | payer BC ==
[2025-05-13 13:00] LABS: #Basophils 0.07 10x3/uL (0.0-0.2); #Eosinophils 0.11 10x3/uL (0.0-0.7); #Monocytes 0.41 10x3/uL (0.11-0.59); #Neutrophils 5.77 10x3/uL (1.40-6.50); %Basophils 0.9 % (0.0-1.0); %Eosinophils 1.4 % (0.0-10.0); %Lymphocytes 20.7 % (21.0-51.0); %Monocytes 5.1 % (0.0-10.0); %Neutrophils 71.0 % (42.0-75.0); Hematocrit 37.6 % (36.0-47.0); Hemoglobin 11.5 g/dL (12.0-16.0); Mean Corpuscular Hemoglobin 26.8 pg (27.0-31.0); Mean Corpuscular Volume 87.6 fL (78.0-98.0); Platelet Count 463 10x3/uL (130-400); Red Blood Cell (RBC) Count 4.29 mill/uL (4.20-5.40); White Blood Cell (WBC) Count 8.11 10x3/uL (4.8-10.8)
[2025-05-13 13:23] LABS: INR-International Normal Ratio 1.1; Prothrombin Time 14.7 sec (12.0-14.7)
[2025-05-13 13:24] LABS: PTT 38.0 sec (22.9-36.1)
[2025-05-13 13:30] LABS: Anion Gap 13 mmol/L (10-20); BUN (Urea Nitrogen) 23 mg/dL (9.8-20.1); Calc. Creatinine Clearance 0 mL/min (70-130); Calcium 9.7 mg/dL (7.8-10.44); Carbon Dioxide 26 mmol/L (23-31); Chloride 105 mmol/L (98-107); Glucose 97 mg/dL (80-115); Potassium 4.7 mmol/L (3.5-5.1); Sodium 139 mmol/L (136-145)
== END 2025-05-13 11:56 | disposition home or self-care (01) ==
LOC: LABBT 11:55
PROVIDERS: ATTEND Urology
DX: Z01.812 Encounter for preprocedural laboratory examination (principal); A41.52 Sepsis due to Pseudomonas; N20.0 Calculus of kidney; N15.1 Renal and perinephric abscess; R79.89 Other specified abnormal findings of blood chemistry
CPT/HCPCS: 80048; 85025; 85610; 85730

== ENCOUNTER 2025-05-17 07:11 | Day surgery (SDC) | payer BC ==
[2025-05-13 12:53] VITALS: BMI 43.5
[2025-05-17] MEDS ORDERED: PROPOFOL 20 ML ONE (12:36)
[2025-05-17] MEDS ORDERED: fentaNYL PF 100 MCG/2 ML SYRINGE ONE ×2 (12:36→14:28)
[2025-05-17] MEDS ORDERED: Ondansetron PF 4 MG/2 ML Vial ONE ×2 (12:36→13:58)
[2025-05-17] MEDS ORDERED: Rocuronium Bromide 10 MG/ML (10ML VIAL) ONE (13:51)
[2025-05-17] MEDS ORDERED: SUGAMMADEX SODIUM 200 MG/2 ML VIAL ONE (14:21)
[2025-05-17] MEDS ORDERED: Oxybutynin 5 MG TAB ONE (15:32)
[2025-06-04 08:38] LABS: CA Oxalate Monohydrate 10 % (.); Color Tan (.); Mg Ammon Phos 40 % (.); Stone Weight 201 mg (.)
== END 2025-05-17 17:09 | disposition home or self-care (01) ==
LOC: SDC 07:11
PROVIDERS: ATTEND Urology
PROC: 0TC18ZZ Extirpation of Matter from Left Kidney, Via Natural or Artificial Opening Endoscopic (ICD-10-PCS; principal; 2025-05-17)
PROC: 0T778DZ Dilation of Left Ureter with Intraluminal Device, Via Natural or Artificial Opening Endoscopic (ICD-10-PCS; principal; 2025-05-17)
DX: N20.0 Calculus of kidney (principal); R79.89 Other specified abnormal findings of blood chemistry; R07.89 Other chest pain; I10 Essential (primary) hypertension
CPT/HCPCS: 74420; 82365; 88300; C1747; C1758; C1769; C2617; J1100; J1642; J2183; J2250; J2405; J2704; Q9967